=== PATIENT | male | born 1970 | race Two or more races ===

== ENCOUNTER 2016-08-09 16:39 | Emergency (ER) | payer MEDICAID ==
[~2016-08-09] VITALS: Ht 172.7 cm; Wt 77.1 kg
[2016-08-09] MEDS ORDERED: IBUPROFEN 800 MG TAB PO ONE (19:45)
[2016-08-09 19:53] VITALS: BP 117/75
== END 2016-08-09 20:05 | disposition home or self-care (01) ==
LOC: ER 16:49
DX: S83.8X2A Sprain of other specified parts of left knee, initial encounter (principal); M17.12 Unilateral primary osteoarthritis, left knee; W18.40XA Slipping, tripping and stumbling without falling, unspecified, initial encounter; Y93.89 Activity, other specified; Y99.8 Other external cause status; Y92.89 Other specified places as the place of occurrence of the external cause
CPT/HCPCS: 73502; 73562

== ENCOUNTER 2016-08-20 14:37 | Inpatient (IN) | payer MEDICAID ==
[~2016-08-20] VITALS: Ht 172.7 cm; Wt 79.4 kg
[2016-08-20] MEDS: SODIUM CHLORIDE 0.9% 1,000 ML IV SCH (01:00)
[2016-08-20] MEDS ORDERED: cefTRIAXone 1GM/50ML D5W 50 ML IV ONE (19:45)
[2016-08-20] MEDS ORDERED: CLINDAMYCIN 900MG IV 50 ML IV ONE (19:45)
[2016-08-20 20:22] LABS: Urine RBC None Seen /hpf (0 - 3)
[2016-08-20 21:04] LABS: Albumin 3.1 g/dL (3.4-5.0); BUN/Creatinine Ratio 8.9; Calcium 8.7 mg/dL (8.5-10.1)
[2016-08-20 21:07] LABS: Bilirubin, Total 0.4 mg/dL (0.2-1.0); Total Protein 8.8 g/dL (6.4-8.2)
[2016-08-20] MEDS ORDERED: VANCOMYCIN PER PHARMACY 0 MG IV SCH (22:45)
[2016-08-20] MEDS ORDERED: VANCOMYCIN 1GM/250ML D5W 250 ML IV ONE (22:45)
[2016-08-20] MEDS ORDERED: ONDANSETRON HCL 4 MG/2 ML VIAL IV PRN (22:45)
[2016-08-20 22:46] LABS: Basophils # (auto) 0 uL; Basophils % (auto) 0.5 % (0.0-2.0); DEFINITIVE VIEW TRANSMISSION; Eosinophils # (auto) 0.1 uL; Eosinophils % (auto) 1.2 % (0.0-7.0); Hematocrit 42.2 % (41.0-53.0); Hemoglobin 13.1 g/dL (13.5-17.5); Lymphocytes # (auto) 1.6 uL; Lymphocytes % (auto) 15.6 % (10.0-50.0); Mean Corpuscular Hemoglobin 24.6 pg (28.0-32.0); Mean Corpuscular Volume 79.3 fL (80.0-100.0); Mean Platelet Volume 8.2 fL (7.4-10.4); Monocytes # (auto) 0.5 uL; Monocytes % (auto) 5.1 % (0.0-12.0); Neutrophils # (auto) 7.8 uL; Neutrophils % (auto) 77.6 % (37.0-80.0); Platelet Count (auto) 359 10^3/uL (140-450); Red Cell Distribution Width 15.2 % (11.6-16.0)
[2016-08-20 22:51] LABS: Urine Bilirubin Negative (Negative); Urine Blood Negative /uL (Negative); Urine Color Yellow (Yellow); Urine Glucose Normal (Normal); Urine Ketone Negative (Negative); Urine Mucus FEW (None Seen); Urine Nitrite Negative (Negative); Urine Urobilinogen Normal (Negative)
[2016-08-21 00:05] VITALS: BP 126/80
[2016-08-21 00:20] VITALS: BP 126/80
[2016-08-21 05:01] VITALS: BP 99/68
[2016-08-21] MEDS: MORPHINE SULFATE 4 MG/ML SYRG IV PRN ×2 (05:01→21:27)
[2016-08-21] MEDS: CLINDAMYCIN 600MG IV 50 ML IV SCH ×3 (06:00→21:28)
[2016-08-21 06:27] LABS: Basophils # (auto) 0 uL; Basophils % (auto) 0.5 % (0.0-2.0); DEFINITIVE VIEW TRANSMISSION; Eosinophils # (auto) 0.2 uL; Eosinophils % (auto) 1.8 % (0.0-7.0); Hematocrit 39.7 % (41.0-53.0); Hemoglobin 12.2 g/dL (13.5-17.5); Lymphocytes # (auto) 1.6 uL; Lymphocytes % (auto) 18.1 % (10.0-50.0); Mean Corpuscular Hemoglobin 24.4 pg (28.0-32.0); Mean Corpuscular Hgb Conc. 30.8 g/dL (32.0-36.0); Mean Corpuscular Volume 79.3 fL (80.0-100.0); Mean Platelet Volume 8.1 fL (7.4-10.4); Monocytes # (auto) 0.7 uL; Monocytes % (auto) 7.8 % (0.0-12.0); Neutrophils # (auto) 6.3 uL; Neutrophils % (auto) 71.8 % (37.0-80.0); Platelet Count (auto) 329 10^3/uL (140-450); Red Cell Distribution Width 15.3 % (11.6-16.0); White Blood Cell 8.8 10^3/uL (4.4-10.8)
[2016-08-21] MEDS: SODIUM CHLORIDE 0.9% 1,000 ML IV SCH ×3 (06:42→22:23)
[2016-08-21 07:06] LABS: Potassium 4.5 mmol/L (3.5-5.1)
[2016-08-21 07:17] LABS: Albumin 2.8 g/dL (3.4-5.0); BUN/Creatinine Ratio 10.5; Bilirubin, Total 0.4 mg/dL (0.2-1.0); Calcium 8.7 mg/dL (8.5-10.1); Total Protein 7.8 g/dL (6.4-8.2)
[2016-08-21 09:00] VITALS: BP 109/63
[2016-08-21] MEDS ORDERED: VANCOMYCIN 1,500 MG in D5W 5% 250 ML IV SCH (12:00)
[2016-08-21] MEDS ORDERED: VANCOMYCIN 1,250 MG in D5W 5% 250 ML IV SCH (12:00)
[2016-08-21 17:00] VITALS: BP 117/67
[2016-08-21] MEDS: ceFAZolin 1GM/50ML D5W 50 ML IV SCH ×2 (18:15→23:50)
[2016-08-21 21:40] VITALS: BP 115/73
[2016-08-22] MEDS: CLINDAMYCIN 600MG IV 50 ML IV SCH ×3 (05:30→22:47)
[2016-08-22] MEDS: ceFAZolin 1GM/50ML D5W 50 ML IV SCH ×4 (05:30→23:41)
[2016-08-22 05:34] VITALS: BP 104/60
[2016-08-22 06:06] LABS: Albumin 2.6 g/dL (3.4-5.0); Calcium 8.3 mg/dL (8.5-10.1); Potassium 4.3 mmol/L (3.5-5.1)
[2016-08-22 06:08] LABS: BUN/Creatinine Ratio 16.7
[2016-08-22 06:14] LABS: Bilirubin, Total 0.2 mg/dL (0.2-1.0); Total Protein 7.4 g/dL (6.4-8.2)
[2016-08-22] MEDS: SODIUM CHLORIDE 0.9% 1,000 ML IV SCH ×3 (06:42→22:49)
[2016-08-22 09:00] VITALS: BP 108/68
[2016-08-22 13:00] VITALS: BP 117/70
[2016-08-22 17:00] VITALS: BP 124/66
[2016-08-22] MEDS: MORPHINE SULFATE 4 MG/ML SYRG IV PRN (20:17)
[2016-08-22 22:00] VITALS: BP 116/69
[2016-08-23] VITALS (7 sets, daily range): BP systolic 101–124; BP diastolic 60–72
[2016-08-23] MEDS: CLINDAMYCIN 600MG IV 50 ML IV SCH ×2 (04:51→14:22)
[2016-08-23] MEDS: ceFAZolin 1GM/50ML D5W 50 ML IV SCH ×2 (06:06→11:57)
[2016-08-23] MEDS: SODIUM CHLORIDE 0.9% 1,000 ML IV SCH ×3 (06:24→22:02)
[2016-08-23] MEDS: ACETAMINOPHEN 500 MG TAB PO PRN ×2 (14:28→21:30)
[2016-08-23 16:01] LABS: Basophils # (auto) 0 uL; Basophils % (auto) 0.4 % (0.0-2.0); DEFINITIVE VIEW TRANSMISSION; Eosinophils # (auto) 0.2 uL; Eosinophils % (auto) 1.8 % (0.0-7.0); Hemoglobin 12.3 g/dL (13.5-17.5); Lymphocytes # (auto) 1.7 uL; Lymphocytes % (auto) 15.7 % (10.0-50.0); Mean Corpuscular Hemoglobin 24.5 pg (28.0-32.0); Mean Corpuscular Hgb Conc. 30.8 g/dL (32.0-36.0); Mean Corpuscular Volume 79.7 fL (80.0-100.0); Mean Platelet Volume 8.3 fL (7.4-10.4); Monocytes # (auto) 0.7 uL; Monocytes % (auto) 6.8 % (0.0-12.0); Neutrophils # (auto) 7.9 uL; Neutrophils % (auto) 75.3 % (37.0-80.0); Platelet Count (auto) 325 10^3/uL (140-450); Red Cell Distribution Width 15.1 % (11.6-16.0); White Blood Cell 10.5 10^3/uL (4.4-10.8)
[2016-08-23] MEDS ORDERED: VANCOMYCIN PER PHARMACY 0 MG IV SCH (16:45)
[2016-08-23] MEDS ORDERED: VANCOMYCIN 1GM/250ML D5W 250 ML IV ONE (17:00)
[2016-08-23] MEDS ORDERED: PIPERACILLIN-TAZOB 3.375GM 100 ML IV ONE (18:00)
[2016-08-24] MEDS: PIPERACILLIN-TAZOB 3.375GM 100 ML IV SCH ×3 (00:23→12:01)
[2016-08-24] MEDS: VANCOMYCIN 1GM/250ML D5W 250 ML IV SCH ×2 (01:37→10:30)
[2016-08-24] MEDS: SODIUM CHLORIDE 0.9% 1,000 ML IV SCH (05:39)
[2016-08-24 06:04] LABS: Basophils # (auto) 0 uL; Basophils % (auto) 0.4 % (0.0-2.0); DEFINITIVE VIEW TRANSMISSION; Eosinophils # (auto) 0.2 uL; Eosinophils % (auto) 2.3 % (0.0-7.0); Hematocrit 39.3 % (41.0-53.0); Hemoglobin 12.2 g/dL (13.5-17.5); Lymphocytes # (auto) 1.6 uL; Lymphocytes % (auto) 15.1 % (10.0-50.0); Mean Corpuscular Hemoglobin 24.8 pg (28.0-32.0); Mean Corpuscular Hgb Conc. 31.2 g/dL (32.0-36.0); Mean Corpuscular Volume 79.5 fL (80.0-100.0); Mean Platelet Volume 8.1 fL (7.4-10.4); Monocytes # (auto) 0.8 uL; Neutrophils # (auto) 7.7 uL; Neutrophils % (auto) 74.2 % (37.0-80.0); Platelet Count (auto) 305 10^3/uL (140-450); Red Cell Distribution Width 15.8 % (11.6-16.0); White Blood Cell 10.4 10^3/uL (4.4-10.8)
[2016-08-24 06:24] LABS: Potassium 4.6 mmol/L (3.5-5.1)
[2016-08-24 06:36] LABS: BUN/Creatinine Ratio 18.2; Calcium 8.5 mg/dL (8.5-10.1)
[2016-08-24 08:00] VITALS: BP 106/70
[2016-08-24 09:00] VITALS: BP 102/68
[2016-08-24 12:25] VITALS: BP 148/63
[2016-08-24 15:30] VITALS: BP 148/63
== END 2016-08-24 17:00 | disposition home or self-care (01) | DRG 383 ==
LOC: ER 14:51 → WEST WING 14:52
PROVIDERS: ADMIT Family Medicine; ATTEND Internal Medicine Pulmonary Disease
DX: L02.416 Cutaneous abscess of left lower limb (principal); L03.114 Cellulitis of left upper limb; L03.116 Cellulitis of left lower limb; D64.9 Anemia, unspecified; S83.412A Sprain of medial collateral ligament of left knee, initial encounter
CPT/HCPCS: 36415; 73700; 80048; 80053; 80202; 81001; 85025; 85652; 87205; 96365; 96366; 96367; J0690; J0696; J2543; J3490; J7060

== ENCOUNTER 2016-09-21 12:07 | Emergency (ER) | payer MEDICAID ==
[~2016-09-21] VITALS: Ht 172.7 cm; Wt 78.0 kg
[2016-09-21 13:02] VITALS: BP 142/80
== END 2016-09-21 13:50 | disposition home or self-care (01) ==
LOC: ER 12:07
DX: G89.29 Other chronic pain (principal); M25.561 Pain in right knee; M17.11 Unilateral primary osteoarthritis, right knee

== ENCOUNTER 2016-10-10 09:35 | Emergency (ER) | payer MEDICAID ==
[~2016-10-10] VITALS: Ht 172.7 cm; Wt 78.0 kg
[2016-10-10 10:00] VITALS: BP 129/78
== END 2016-10-10 12:36 | disposition home or self-care (01) ==
LOC: ER 09:35
DX: M25.461 Effusion, right knee (principal); M25.562 Pain in left knee